=== PATIENT | female | born 1935 | race Hispanic/Latino ===

== ENCOUNTER 2018-11-13 13:01 | Observation (INO) | payer OTHER, MEDICARE ==
[~2018-11-13] VITALS: Ht 157.5 cm; Wt 66.0 kg
[2018-11-13 13:19] LABS: BASOPHILS % (AUTO) 1.2 % (0.0-5.0); EOSINOPHILS % (AUTO) 0.1 % (0.0-8.0); HEMATOCRIT 40.6 % (36-48); LYMPHOCYTES % (AUTO) 14.8 % (21.0-51.0); MEAN CORPUSCULAR HEMOGLOBIN 28.6 pg (27.0-33.0); MEAN CORPUSCULAR HGB CONC 32.9 g/dL (32.0-36.0); MEAN CORPUSCULAR VOLUME 86.9 fL (79-99); MONOCYTES % (AUTO) 4.1 % (3.0-13.0); NEUTROPHILS % (AUTO) 79.8 % (40.0-77.0); PLATELET COUNT (AUTO) 261 K/uL (130-400); RED BLOOD CELL COUNT(AUTO) 4.68 MIL/uL (4.00-5.50); RED CELL DISTRIBUTION WIDTH 13.6 % (11.0-15.5); WHITE BLOOD COUNT (AUTO) 11.7 K/uL (4.8-10.8)
[2018-11-13 13:27] LABS: CREATININE 0.7 mg/dL (0.5-1.5); POTASSIUM 3.7 mmol/L (3.5-5.1)
[2018-11-13] MEDS ORDERED: CEFTRIAXONE SODIUM 1 GM ONE (13:34)
[2018-11-13 13:35] LABS: ALBUMIN 3.7 g/dL (3.5-5.0); BILIRUBIN,TOTAL 0.3 mg/dL (0.2-1.0); INR 1.02 (0.85-1.15); PARTIAL THROMBOPLASTIN TIME 22.2 SEC (26.3-35.5); PROTHROMBIN TIME 10.7 SEC (9.6-11.6); TOTAL PROTEIN, SERUM 7.1 g/dL (6.0-8.3)
[2018-11-13] MEDS ORDERED: ONDANSETRON HCL 4 MG/2 ML VIAL ONE (13:39)
[2018-11-13 13:48] LABS: T4 (THYROXINE) 9.4 ug/dL (4.7-13.3); THYROID STIMULATING HORMONE 1.96 uIU/mL (0.36-3.74)
[2018-11-13 14:01] LABS: APPEARANCE,URINE Clear (CLEAR); BILIRUBIN,URINE Negative (NEGATIVE); COLOR,URINE Yellow (YELLOW); GLUCOSE, URINE (UA) TRACE mg/dL (NEGATIVE); KETONES,URINE 40 mg/dL (NEGATIVE); LEUKOCYTE ESTERASE ,URINE Negative (NEGATIVE); NITRATE,URINE Negative (NEGATIVE); OCCULT BLOOD,URINE Negative (NEGATIVE); PH,URINE 6.5 (5.0-8.0); PROTEIN,URINE Negative (NEGATIVE); UROBILINOGEN,URINE 0.2 mg/dL (0.2-1.0)
[2018-11-13 14:19] LABS: BACTERIA,URINE Few /HPF (None Seen); RBC,URINE 0-1 /HPF (0-1); SQUAMOUS EPITHELIAL CELL,UR 0-2 /HPF (0-2); WBC,URINE 0-1 /HPF (0-1)
[2018-11-13] MEDS ORDERED: METRONIDAZOLE 500MG/100ML BAG 100 ML ONE (15:24)
[2018-11-13] MEDS ORDERED: LEVOFLOXACIN 750 MG/D5W 150 ML 150 ML ONE (15:34)
[2018-11-13] MEDS: SODIUM CHLORIDE 0.9% 1000ML 1,000 ML IV SCH ×2 (16:42→20:00)
[2018-11-13] MEDS ORDERED: ONDANSETRON HCL 4 MG/2 ML VIAL IV PRN (16:45)
[2018-11-13] MEDS ORDERED: ACETAMINOPHEN 325 MG TAB PO PRN ×2 (16:45)
[2018-11-13 18:46] VITALS: BP 119/78
--- NOTE | 2018-11-13 19:06 | NUR ---
ADMISSION NOTE: Made the rounds with Day shift , Renetta BRASWELL. Pt. was seen lying in bed comfortably fully awake and responsive. Assessment done. Oriented to room and use of call light. Policies and procedures explained. Denies feeling of discomfort. Distress not noted.
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
[2018-11-13 20:00] VITALS: BP 119/78
[2018-11-13] MEDS: FAMOTIDINE 20MG TAB 20 MG TAB PO SCH (21:00)
[2018-11-13] MEDS: ZOSYN 3.375GM+NS 50ML 50 ML IV SCH (21:00)
[2018-11-13 23:48] VITALS: BP 131/81
[2018-11-14] MEDS: SODIUM CHLORIDE 0.9% 1000ML 1,000 ML IV SCH (02:42)
[2018-11-14 04:08] VITALS: BP 143/79
[2018-11-14] MEDS: ZOSYN 3.375GM+NS 50ML 50 ML IV SCH (05:00)
[2018-11-14 08:00] VITALS: BP 155/93
[2018-11-14] MEDS: FAMOTIDINE 20MG TAB 20 MG TAB PO SCH (08:59)
[2018-11-14] MEDS ORDERED: ENOXAPARIN SODIUM 40 MG/0.4 ML SYRINGE SQ SCH (09:00)
--- NOTE | 2018-11-14 09:00 | NUR ---
REFUSING MEDICATION ADMINISTRATION Patient is alert and oriented X name and place. Disoriented to year, and date; oriented to month and day. Provider at bedside. Patient sitting in chair, refusing all medications. States how can she be sure that the medication is not poisoned and she won't ? Consult for Dr. Tafoya was ordered and has been called. She already signed refusal form and is filed in chart.
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
== END 2018-11-14 10:45 | disposition left against medical advice (07) ==
LOC: EDH 13:01 → EDHIP 16:42 → 3BH 18:51
PROVIDERS: ADMIT Internal Medicine; ATTEND Internal Medicine
DX: K29.70 Gastritis, unspecified, without bleeding (principal); Z79.899 Other long term (current) drug therapy
CPT/HCPCS: 36415; 71045; 80053; 81001; 82550; 83605 ×2; 83874; 84436; 84443; 84484; 85025; 85610; 85730; 87040 ×2; 87088; 93005; 99291; G0378 ×18; J0696; J1956; J2405; J2543; J3490; J1650